=== PATIENT | male | born 1935 | race Caucasian/White ===

== ENCOUNTER → 2019-07-11 | Outpatient (CLI) | payer MEDICARE ==
[~2019-07-11] MED LIST: ASP81TEC PO; CPR500T PO; LISI10TA PO; LVT.025T PO; METO100T2 PO; MPR22TI TOP; MULT1CAP27 PO; OMEG1CAP74 PO; OMEP20TA2 PO; PHEN200T27 PO
[2019-07-11 18:52] LABS: CLARITY,URINE CLOUDY; COLOR,URINE YELLOW
[2019-07-11 18:53] LABS: BACTERIA,URINE LARGE /HPF; BILIRUBIN,URINE NEGATIVE (NEGATIVE); GLUCOSE, URINE (UA) NEGATIVE (NEGATIVE); KETONES,URINE TRACE (NEGATIVE); LEUKOCYTE ESTERASE ,URINE 3+ (NEGATIVE); NITRITE,URINE POSITIVE (NEGATIVE); PROTEIN,URINE NEGATIVE (NEGATIVE); WBC,URINE >100 /HPF
== END ==
LOC: LAB FS 17:21
PROVIDERS: ATTEND Family Medicine
DX: R30.0 Dysuria (principal); R53.1 Weakness
CPT/HCPCS: 81000; 87077; 87088

== ENCOUNTER 2019-07-29 12:59 | Emergency (ER) | payer MEDICARE, OTHER ==
[~2019-07-29] VITALS: Ht 182.9 cm; Wt 81.8 kg
--- NOTE | 2019-07-29 13:16 | ED General ---
General Stated Complaint: FALL Source of Information: EMS History of Present Illness Date Seen by Provider: Jul 29, 2019 Time Seen by Provider: 13:00 Initial Comments Pt w Hx of dementia, on Hospice @ [place]. Normally ambulates w a walker but a few days ago he fell and has been in pain since then and not walking. No obvious deformity. Allergies and Home Medications Allergies Coded Allergies: atorvastatin (Verified Allergy, Unknown, 07/29/19) Home Medications Aspirin 81 Mg Tabec, 81 MG PO DAILY, (Reported) Ciprofloxacin 500 Mg Tablet, 1 TAB PO BID Prescribed by: LAURYN ELLIS on 09/16/13 1155 Levothyroxine Sodium 25 Mcg Tablet, 25 MCG PO DAILY, (Reported) Lisinopril 10 Mg Tablet, 10 MG PO HS, (Reported) Metoprolol Tartrate 100 Mg Tablet, 100 MG PO HS, (Reported) Multivitamins 1 Each Capsule, 1 TAB PO DAILY, (Reported) Mupirocin 22 Gm Oint, 0 GM TOP BID Prescribed by: LAURYN ELLIS on 09/16/13 1155 [place]-3/Dha/Epa/Fish Oil 1,000 Mg Capsule, 1,000 MG PO HS, (Reported) Omeprazole 20 Mg Tablet.dr, 20 MG PO HS, (Reported) Phenazopyridine Hcl 200 Mg Tablet, 1 EACH PO TID Prescribed by: LAURYN ELLIS on 09/16/13 1155 Patient Home Medication List Home Medication List Reviewed: Yes Review of Systems Review of Systems Constitutional: see HPI Musculoskeletal: see HPI Psychiatric/Neurological: See HPI Unable to obtain ROS due to mental status/ dementia Past Wqvkoaq-Xjqksj-Kqwyaa Hx Past Med/Social Hx: Reviewed Nursing Past Med/Soc Hx Patient Social History Recent Foreign Travel: Yes Immunizations Up To Date Date of Pneumonia Vaccine: Sep 14, 2009 Date of Influenza Vaccine: Jul 15, 2013 Past Medical History Hiatal Hernia Prostate Physical Exam Vital Signs Vital Signs - First Documented Capillary Refill : Height, Weight, BMI Height: '" Weight: 160lbs. oz. 72.591693ps; BMI Method:Stated General Appearance: No Apparent Distress, WD/WN HEENT: PERRL/EOMI Neck: Normal Inspection, Non Tender, Supple Respiratory: Chest Non Tender, Lungs Clear, Normal Breath Sounds Cardiovascular: Regular Rate, Rhythm, No Edema, No Gallop, Normal Peripheral Pulses Gastrointestinal: Non Tender, Soft; No Distended, No Guarding Back: Normal Inspection, No CVA Tenderness, No Vertebral Tenderness Extremity: Normal Capillary Refill, Normal Inspection, No Pedal Edema, Other (difficult to localize pain, but generalized tenderness to palpation and gentle movement of lower extremities (presumed hip) as no ecchymosis of deformity of LE's seen or palpated. ALSO w generalized TTP RUE and pain w passive ROM RUE. no obvious deformity. NVI of b/l UE and LE) Neurologic/Psychiatric: No Motor/Sensory Deficits, Disoriented (severe dementia) Progress/Results/Core Measures Suspected Sepsis SIRS Temperature: Pulse: Respiratory Rate: Blood Pressure / Mean: Results/Orders My Orders Orders - DAVID SCHAFFER DO Pelvis/Esvin Hips 2 View (07/29/19 13:09) Humerus 2 View Right (07/29/19 13:09) Wrist 3 View Right (07/29/19 13:09) Ct Pelvis Wo (07/29/19 13:58) Vital Signs/I&O 07/29/19 07/29/19 13:00 13:00 Temp 37.2 37.2 Pulse 72 72 Resp 15 15 B/P (MAP) 134/71 (92) 134/71 (92) Pulse Ox 96 96 O2 Delivery Room Air Room Air Capillary Refill : Progress Note : Progress Note Discussed RAD findings w family present in ED. Will DC back to NH and advised f/u to ER if other problems or concerns or not improving in 1 wk to consider repeat films Departure Impression Primary Impression: Fall Qualified Codes: W19.XXXA - Unspecified fall, initial encounter Disposition: 01 HOME, SELF-CARE Condition: Stable Departure-Patient Inst. Decision time for Depature: 15:11 Referrals: HONG BROWNE MD (PCP/Family) Primary Care Physician Patient Instructions: Preventing Falls in the Older Adult DAVID SCHAFFER DO Jul 29, 2019 13:16
--- NOTE | 2019-07-29 13:53 | Diagnostic Imaging Report ---
INDICATION: Fall, pain. COMPARISON: None available. TECHNIQUE: Three radiographs of the right humerus are dated 07/29/2019. FINDINGS: No acute fracture or dislocation. No destructive osseous process. No suspicious radiopaque foreign body. Mild degenerative changes of the glenohumeral joint. IMPRESSION: No acute osseous abnormality. Dictated by: Dictated on workstation # [id number]
--- NOTE | 2019-07-29 13:54 | Diagnostic Imaging Report ---
INDICATION: Pain, fall. COMPARISON: None available. TECHNIQUE: Three radiographs of the right wrist are dated 07/29/2019. FINDINGS: No acute fracture or dislocation. No destructive osseous process. Scattered degenerative changes are present including advanced degenerative changes involving the first CMC joint. Additional degenerative changes are noted within the intercarpal joints. No suspicious radiopaque foreign body. IMPRESSION: No acute osseous abnormality with scattered degenerative changes including advanced degenerative changes involving the first CMC joint. Dictated by: Dictated on workstation # [id number]
--- NOTE | 2019-07-29 13:58 | Diagnostic Imaging Report ---
INDICATION: Fall, pain. COMPARISON: 09/03/2013. TECHNIQUE: Five radiographs of the pelvis and bilateral hips are dated 07/29/2019. FINDINGS: Irregularity of the right greater trochanter is identified. Additionally, portions of the right greater trochanter appear more superiorly positioned than on the prior examination in 2012. Advanced degenerative changes are noted within the partially visualized lower lumbar spine. No additional acute fracture or dislocation. No destructive osseous process. Mild degenerative changes within the bilateral hips. The bilateral femoral heads maintain normal shape and contour. The pubic symphysis and bilateral sacroiliac joints are intact. IMPRESSION: New irregularity and deformity associated with the right greater trochanter, new since 2012. Findings are concerning for a mildly displaced right greater trochanter fracture. Chronicity is uncertain although this is new since 2012. A CT of the pelvis would help to further evaluate. Mild scattered degenerative changes within the bilateral hips with advanced degenerative changes within the lumbosacral spine. CRITICAL FINDING Called to Dr. Cabrales at 1:55 p.m. by stormb. Dictated by: Dictated on workstation # [id number]
--- NOTE | 2019-07-29 14:49 | Diagnostic Imaging Report ---
PROCEDURE: CT pelvis without contrast. TECHNIQUE: Multiple contiguous axial images were obtained through the pelvis without the use of intravenous contrast. Sagittal and coronal reformations were performed. Auto Exposure Controls were utilized during the CT exam to meet ALARA standards for radiation dose reduction. INDICATION: Abnormal x-rays with some irregularity of the right greater trochanter. This study is performed for further evaluation. COMPARISON: Correlation is made with radiographs earlier the same day. FINDINGS: Bilateral sacral ala appear intact. Bilateral superior and inferior pubic rami appear intact. Femoroacetabular alignment is normal bilaterally. Both femoral heads and necks appear to be intact. Curvilinear calcific density is noted adjacent to the greater tuberosity. This appears to be well-corticated and findings are likely chronic. No acute fracture is seen. Left hip is unremarkable. Bladder appears to be somewhat trabeculated and contains small diverticuli. There is diverticulosis of the sigmoid colon. No free fluid is seen. IMPRESSION: Chronic changes to the right hip. No acute fracture is detected. Dictated by: Dictated on workstation # [id number]
[2019-07-29 15:30] VITALS: BP 104/85
== END 2019-07-29 15:55 | disposition home or self-care (01) ==
LOC: EDUNIT# 12:59 → ER FS 13:00
DX: M79.604 Pain in right leg (principal); M79.605 Pain in left leg; M79.601 Pain in right arm; F03.90 Unspecified dementia, unspecified severity, without behavioral disturbance, psychotic disturbance, mood disturbance, and anxiety; Z88.8 Allergy status to other drugs, medicaments and biological substances; Z79.82 Long term (current) use of aspirin; W19.XXXA Unspecified fall, initial encounter
CPT/HCPCS: 72192; 73060; 73110; 73521

== ENCOUNTER → 2019-08-05 | Outpatient (CLI) | payer MEDICARE, OTHER ==
[2019-08-05 11:09] LABS: BILIRUBIN,URINE NEGATIVE (NEGATIVE); CLARITY,URINE SLT CLOUDY; COLOR,URINE YELLOW; GLUCOSE, URINE (UA) NEGATIVE (NEGATIVE); KETONES,URINE NEGATIVE (NEGATIVE); NITRITE,URINE POSITIVE (NEGATIVE); PH,URINE 6.5 (5-9); PROTEIN,URINE NEGATIVE (NEGATIVE)
[2019-08-05 11:10] LABS: BACTERIA,URINE LARGE /HPF; CALCIUM OXALATE CRYSTALS,UR FEW /LPF; LEUKOCYTE ESTERASE ,URINE 2+ (NEGATIVE); RBC,URINE RARE /HPF; WBC,URINE 50-100 /HPF
== END ==
LOC: RAD FS 10:44
PROVIDERS: ATTEND Pediatrics
DX: Z01.89 Encounter for other specified special examinations (principal)
CPT/HCPCS: 81000; 87077; 87088

== ENCOUNTER 2019-10-07 08:41 | Emergency (ER) | payer MEDICARE, OTHER ==
--- NOTE | 2019-10-07 08:54 | ED Syncope ---
General Stated Complaint: SYNCOPAL EPISODE Source of Information: Patient, EMS, [facility] Records Exam Limitations: Other (clinical condition) History of Present Illness Date Seen by Provider: Oct 07, 2019 Time Seen by Provider: 08:40 Initial Comments Patient brought into the ER by EMS from [facility] with chief complaint that he was sitting at the breakfast table when he became cool action clammy and unresponsive. EMS reports that they were told he had no pulse and was not breathing. They did not initiate CPR as he is a DO NOT RESUSCITATE on hospice for unknown reason. EMS was summonsed and when EMS arrived said he had same color had a bowel movement in his brief and would open his eyes and regard the examiner if they asked his name but does not answer any questions. At baseline EMS says he gets around in a wheelchair and talks. Patient is not able to cooperate with a field stroke examination per EMS. Blood pressure 1:30 systolic heart rate in the 60s and good oxygenation around 90-94% on room air. He does not rely on supplemental oxygen. No mention of fever. No mention of blood sugar. 12-lead EKG was provided. History of CHF and heart disease but no A. fib or dysrhythmia known. EMS established initiated IV in his right antecubital space and has about 200 cc of a liter of normal saline in. Spoke to the nurse at [facility] and she says at the breakfast table he was being fed and was just given his her morning medications. The medicine teacher was feeding him and he became unresponsive dexter ashen colored with saliva coming out of his mouth for about 3-5 minutes. Vital signs prior to this were 120/65 heart rate of 64 and no temperature was obtained this morning. During the episode he had a blood pressure from a mechanical cuff of 82/47 with a pulse of 75. Nurse's he was breathing however was very shallow. No recent illness coughing diarrhea nausea vomiting or complaints. She's has a baseline is not conversational but he can definitely express his needs verbally and sometimes it is not like a person he will does not talk to them. He is on hospice with a history of chronic UTIs and chronic kidney disease. Allergies and Home Medications Allergies Coded Allergies: atorvastatin (Verified Allergy, Unknown, 07/29/19) Home Medications Aspirin 81 Mg Tabec, 81 MG PO DAILY, (Reported) Ciprofloxacin 500 Mg Tablet, 1 TAB PO BID Prescribed by: LAURYN ELLIS on 09/16/13 115 Levothyroxine Sodium 25 Mcg Tablet, 25 MCG PO DAILY, (Reported) Lisinopril 10 Mg Tablet, 10 MG PO HS, (Reported) Metoprolol Tartrate 100 Mg Tablet, 100 MG PO HS, (Reported) Multivitamins 1 Each Capsule, 1 TAB PO DAILY, (Reported) Mupirocin 22 Gm Oint, 0 GM TOP BID Prescribed by: LAURYN ELLIS on 09/16/131154 [place]-3/Dha/Epa/Fish Oil 1,000 Mg Capsule, 1,000 MG PO HS, (Reported) Omeprazole 20 Mg Tablet.dr, 20 MG PO HS, (Reported) Phenazopyridine Hcl 200 Mg Tablet, 1 EACH PO TID Prescribed by: LAURYN ELLIS on 09/16/131154 Patient Home Medication List Home Medication List Reviewed: Yes Review of Systems Constitutional: see HPI (review of systems Limited because the patient is nonverbal. Based on staff and EMS report); No fever, No malaise EENTM: No ear discharge, No ear pain Respiratory: No cough, No orthopnea, No phlegm, No short of breath Cardiovascular: No chest pain; Hx of Intervention, syncope, vascular heart diseas Gastrointestinal: No abdominal pain, No vomiting Genitourinary: No discharge, No hematuria Musculoskeletal: No gout, No joint pain, No joint swelling Skin: No pruritus, No rash All Other Systems Reviewed Negative Unless Noted: Yes Past Futvruk-Fivfwl-Vxidne Hx Patient Social History Alcohol Use: Denies Use Recreational Drug Use: No Smoking Status: Never a Smoker 2nd Hand Smoke Exposure: No Recent Foreign Travel: Yes Immunizations Up To Date Date of Pneumonia Vaccine: Sep 14, 2009 Date of Influenza Vaccine: Jul 15, 2013 Past Medical History Surgeries: Yes (urethral dilitation) Respiratory: No Cardiac: Yes Coronary Artery Disease, Hypertension Neurological: Yes Dementia Genitourinary: Yes Renal Failure, UTI-Chronic Gastrointestinal: Yes Gastroesophageal Reflux, Hiatal Hernia Musculoskeletal: No Endocrine: Yes Hypothyroidsim Cancer: Yes (basal cell carcinoma) Prostate Integumentary: Yes (basal cell carcinoma) Blood Disorders: No Physical Exam Vital Signs Capillary Refill : Height, Weight, BMI Height: '" Weight: 160lbs. oz. 72.842440mz; 24.00 BMI Method:Stated General Appearance: No Apparent Distress, WD/WN HEENT: Pharynx Normal, Moist Mucous Membranes Neck: Full Range of Motion, Normal Inspection Cardiovascular: Regular Rate, Rhythm, No Edema, Normal Peripheral Pulses Respiratory: Chest Non Tender, Lungs Clear, Normal Breath Sounds, No Accessory Muscle Use, No Respiratory Distress Gastrointestinal: Normal Bowel Sounds, Non Tender, Soft Extremities: Normal Capillary Refill, Normal Inspection, Non Tender, No Calf Tenderness Neurologic/Psychiatric: Alert, Other (gcs: 10 non verbal) Cranial Nerves: Normal Hearing, PERRL, Abnormal Speech Skin: Normal Color, Warm/Dry Progress/Results/Core Measures Results/Orders Lab Results Laboratory Tests Test 10/07/19 08:57 Range/Units Glucometer 107 70-110 MG/DL My Orders Orders - JESSICA BRASHER Accucheck Stat ONCE (10/07/19 08:54) Ekg Tracing (10/07/19 08:56) Continuous Ekg Monitoring (10/07/19 08:56) Progress Progress Note #1: Time: 08:55 Progress Note Hospice nurse was contacted and daughter has been called. She is the D POA and is on her way to the ER to discuss goals of care. Plan to check an Accu check. EKG. Twelve-lead by EMS did not reveal any ST changes. CBG 107 Progress Note #2: Time: 09:31 Progress Note Daughter who is the power of tax associate attorney and the [id number] have arrived and they would like to keep the patient on hospice and do no further intervention after having a long, supported decision making conversation. I think this is completely appropriate and we will make movement towards transporting the p atient back home. Initial ECG Impression Date: Oct 07, 2019 Initial ECG Impression Time: 08:56 Initial ECG Rate: 63 Initial ECG Rhythm: Normal Sinus Initial ECG Intervals: Normal Initial ECG Impression: Normal, Nonspecific Changes Initial ECG Comparisson: Unchanged Comment Normal sinus rhythm without clinically relevant ST elevation or depression. Departure Impression Primary Impression: Syncope Qualified Codes: R55 - Syncope and collapse Disposition: 01 HOME, SELF-CARE Condition: Unchanged Departure-Patient Inst. Decision time for Depature: 09:32 Referrals: HONG BROWNE MD (PCP/Family) Primary Care Physician JULIO SHANNON MD Patient Instructions: Syncope (Fainting) (DC) Add. Discharge Instructions: Continue current hospice management. Contact the hospice company for further direction. Contact primary care provider to discuss need for continued vital signs, blood pressure medicines and aspirin. JESSICA BRASHER Oct 07, 2019 08:54
--- NOTE | 2019-10-07 09:53 | NUR ---
Notified Shoshana at [facility] and aJimie at [facility] that the patient will be returning.
[2019-10-07 11:25] VITALS: BP 131/58
== END 2019-10-07 11:33 | disposition home or self-care (01) ==
LOC: EDUNIT# 08:41 → ER FS 08:42
DX: R55 Syncope and collapse (principal); I13.0 Hypertensive heart and chronic kidney disease with heart failure and stage 1 through stage 4 chronic kidney disease, or unspecified chronic kidney disease; I50.9 Heart failure, unspecified; N18.9 Chronic kidney disease, unspecified; I25.10 Atherosclerotic heart disease of native coronary artery without angina pectoris; F03.90 Unspecified dementia, unspecified severity, without behavioral disturbance, psychotic disturbance, mood disturbance, and anxiety; K21.9 Gastro-esophageal reflux disease without esophagitis; E03.9 Hypothyroidism, unspecified; Z85.46 Personal history of malignant neoplasm of prostate; Z85.828 Personal history of other malignant neoplasm of skin; Z88.8 Allergy status to other drugs, medicaments and biological substances; Z79.82 Long term (current) use of aspirin
CPT/HCPCS: 82962